=== PATIENT | male | born 1980 | race Caucasian/White ===

== ENCOUNTER 2019-04-15 16:13 | Emergency (ER) | payer BC ==
[2019-04-15] MEDS ORDERED: Naproxen TAB* 250 MG PO ONE (17:07)
--- NOTE | 2019-04-15 17:14 | ED ---
Skin Complaint - HPI Summary HPI Summary: 38-year-old male presents with complaints of a rash to his left foot, general malaise, stiff neck, and mild headache. Patient states the rash on his foot started 4 days ago. His other symptoms started today. Patient states he thinks he may have been bitten by a tick a couple of months ago although he never sought an actual tick attached. Denies fever, chills, URI symptoms, or cough. - History of Current Complaint Chief Complaint: EDGeneral Time Seen by Provider: 04/15/19 16:30 Stated Complaint: TOUCH OF [place] DISEASE PER PT Hx Obtained From: Patient Pain Intensity: 2 - Allergy/Home Medications Allergies/Adverse Reactions: Allergies Allergy/AdvReac Type Severity Reaction Status Date / Time bee venom protein (honey bee) Allergy Anaphylatic Verified 04/15/19 17:30 Shock shellfish derived Allergy Swelling Verified 04/15/19 17:30 PMH/Surg Hx/FS Hx/Imm Hx Previously Healthy: Yes - Denies signigicant PMH Infectious Disease History: No Infectious Disease History: Denies: Traveled Outside the [place] in Last 30 Days - Family History Known Family History: Positive: Non-Contributory - Social History Occupation: Employed Full-time Lives: With Family Alcohol Use: None Substance Use Type: Reports: Marijuana Smoking Status (MU): Heavy Every Day Tobacco Smoker Review of Systems Positive: Other - Malaise. Negative: Fever, Chills Negative: Drainage, Erythema Negative: Sore Throat, Ear Ache, Nasal Discharge Cardiovascular: Negative Negative: Cough Gastrointestinal: Negative Genitourinary: Negative Negative: Arthralgia, Decreased ROM Positive: Rash Positive: Headache. Negative: Weakness, Paresthesia, Numbness, Syncope, Slurred Speech All Other Systems Reviewed And Are Negative: Yes Physical Exam - Summary Physical Exam Summary: GENERAL APPEARANCE: Well developed, well nourished, alert and cooperative, and appears to be in no acute distress. EYES: Conjunctiva clear. No drainage. EARS: External auditory canals and tympanic membranes clear, hearing grossly intact. NOSE: No nasal discharge. THROAT: Pharynx normal. No tonsilar inflammation, swelling, exudate, or lesions. Uvula midline. Oral cavity normal. Teeth and gingiva in good general condition. NECK: Neck supple, non-tender without lymphadenopathy. CARDIAC: Normal S1 and S2. No S3, S4 or murmurs. Rhythm is regular. There is no peripheral edema, cyanosis or pallor. Extremities are warm and well perfused. Capillary refill is less than 2 seconds. Peripheral pulses intact. LUNGS: Clear to auscultation without rales, rhonchi, wheezing or diminished breath sounds. ABDOMEN: Positive bowel sounds. Soft, nondistended, nontender. No guarding or rebound. No masses or hepatosplenomegally. MUSKULOSKELETAL: ROM intact to all extremities. No joint erythema or tenderness. Normal muscular development. Normal gait. EXTREMITIES: Erythema, tenderness, and increased warmth to the dorsal, lateral aspect of his left foot involving the 3rd, 4th, and 5th toes. There was some cracked skin noted in between the toes. No induration, fluctuance, or drainage noted. SKIN: Skin normal color, texture and turgor with no lesions or eruptions. Triage Information Reviewed: Yes Vital Signs On Initial Exam: Initial Vitals Temp Pulse Resp BP Pulse Ox 99.4 F 85 18 147/87 99 04/15/19 16:16 04/15/19 16:16 04/15/19 16:16 04/15/19 16:16 04/15/19 16:16 Vital Signs Reviewed: Yes Diagnostics - Vital Signs Vital Signs Temp Pulse Resp BP Pulse Ox 04/15/19 16:16 99.4 F 85 18 147/87 99 - Laboratory Lab Statement: Any lab studies that have been ordered have been reviewed, and results considered in the medical decision making process. Course/Dx - Course Course Of Treatment: 38-year-old male presents with complaints of a rash to his left foot, general malaise, stiff neck, and mild headache. Patient states the rash on his foot started 4 days ago. His other symptoms started today. Patient states he thinks he may have been bitten by a tick a couple of months ago although he never sought an actual tick attached. Denies fever, chills, URI symptoms, or cough. Afebrile. Hypertensive otherwise vital signs stable. Patient had an area of erythema, tenderness, and increased warmth to the dorsal , lateral aspect of his left foot involving the 3rd, 4th, and 5th toes. There was some cracked skin noted in between the toes. No induration, fluctuance, or drainage noted. Remainder of exam was unremarkable. I discussed with the patient that with no verified tick bite and based on the appearance of his foot I suspect that this is a cellulitis as opposed to erythema migrans. We obtained a Lyme screen with reflex. I'm going to start him on doxycycline 100 mg twice a day 10 days to treat for a cellulitis pending the results of the Lyme screen. Patient understands that if Lyme screen is positive we will need to extend his antibiotic treatment. Patient does not have a primary care provider therefore he is to follow-up in the [facility] in 3 days if symptoms are not improving. Anticipatory guidance and warning symptoms were reviewed with the patient. Verbalizes understanding and agrees the plan of care. - Differential Diagnoses - Skin Complaint Differential Diagnoses: Cellulitis, Local Allergic Reaction, Tick Born Illness, Tinea - Diagnoses Provider Diagnoses: Cellulitis of foot, left Discharge - Sign-Out/Discharge Documenting (check all that apply): Patient Departure Patient Received Moderate/Deep Sedation with Procedure: No - Discharge Plan Condition: Stable Disposition: HOME Prescriptions: Doxycycline Hyclate 100 mg PO BID #20 tablet Patient Education Materials: Cellulitis (ED) Referrals: No Primary Care Phys,[facility] [Primary Care Provider] - [facility] [Outside] Additional Instructions: The redness to your left foot does not appear to be the typical bull's-eye rash as seen with Lyme disease. I suspect that she have an infection of the skin called cellulitis. Going to start you on an antibiotic to treat for the infection. This antibiotic is also used in the treatment for Lyme disease. We have tested you for Lyme today and if this is positive we'll call in additional antibiotics to complete a full course necessary to treat Lyme disease. Start doxycycline 100 mg twice a day for 10 days. Be sure to take the entire course even if feeling better. Do not drink milk or eat milk products for at least 2 hours before or after taking this medication as the calcium can affect the absorption of the antibiotic. This antibiotic will also make it worse sensitive to the sunlight to you should avoid sun exposure if possible and be sure to use appropriate protection if you need to be outdoors. Take acetaminophen (Tylenol) or ibuprofen (Advil, Motrin) according to directions as needed for any aches pains or fever. Follow-up in the [facility] in 3 days if there is no improvement in her symptoms. Call for an appointment. Return the emergency room if you develop fever greater than 100.5 F, has severe headache and/or neck pain that is not relieved using acetaminophen or ibuprofen , have increased redness or swelling, or any worsening of symptoms. - Billing Disposition and Condition Condition: STABLE Disposition: Home Images - Images Full Body (No Head): 1 - Erythema, tenderness, increased warmth - Attestation Statements Provider Attestation: I am administratively signing this document. I was available for consultation for this patient. I did not evaluate the patient, did not have a doctor/patient relationship with the patient, or participate in any medical decision making or disposition decisions unless I am specifically named in the chart as having consulted on the patient. If I have consulted on the patient, please see my own ED note on the patient encounter. Barbie Damico MD
[2019-04-15 17:39] VITALS: BP 136/65
== END 2019-04-15 17:37 | disposition home or self-care (01) ==
LOC: ED 16:13
DX: L03.116 Cellulitis of left lower limb (principal); R53.81 Other malaise; M43.6 Torticollis; R51 Headache; Z91.030 Bee allergy status; Z91.013 Allergy to seafood; F17.200 Nicotine dependence, unspecified, uncomplicated
CPT/HCPCS: 36415; 86618; 99282; A9270-GY